=== PATIENT | male | born 1980 | race Caucasian/White ===

== ENCOUNTER → 2016-09-18 | Outpatient (CLI) | payer OTHER ==
--- NOTE | 2016-09-18 15:14 | DI ---
Indication: ITS.REASON: DX TESTING PROCEDURE: KNEE LEFT 2 VIEW: Encounter: Initial Comparison: None Findings: There is no acute fracture, dislocation or malalignment identified. Joint spaces are normal. Impression: No acute osseous abnormality. .
== END ==
LOC: IMA 14:48
DX: Z02.89 Encounter for other administrative examinations (principal)